=== PATIENT | male | born 1975 | race African-American/Black ===

== ENCOUNTER 2018-05-08 20:18 | Inpatient (IN) | payer MEDICAID ==
[2018-05-08] MEDS ORDERED: HYDROmorphone 1 MG/ML Syringe IVPUSH ONE ×2 (20:48→23:48)
[2018-05-08] MEDS ORDERED: Metoclopramide 10 MG/2 ML SDV IVPUSH ONE (20:48)
--- NOTE | 2018-05-08 20:53 | EDM.PDOC ---
ED HPI GENERAL MEDICAL PROBLEM - General Chief Complaint: Abdominal Pain Stated Complaint: ABDOMINAL PAIN Time Seen by Provider: 05/08/18 20:47 Source of Information: Reports: Patient History Limitations: Reports: No Limitations - History of Present Illness INITIAL COMMENTS - FREE TEXT/NARRATIVE: 43-year-old male attends the ED after being seen initially at [facility] walk-in. Patient presents there with diffuse lower abdominal pain since about 8: 30 last night. Pain came on abruptly after eating supper. He states the pain is about the same as it was last night. He can stand fully erect he's walking hunched over. He's developed a fever of 104.5. He's had the chills with rigors off-and-on today. does have lower abdominal pressure discomfort and a feeling of need to defecate but unable to do so. He feels nauseated has tried to try make himself vomit but has been unable to do so. He states he drinks or eats anything as it makes the pain much worse. He said no previous abdominal surgery. He is allergic to be constant walnuts. Takes no medications regularly Onset: Sudden Onset Date: 05/07/18 Onset Time: 20:30 Duration: Hour(s):, Constant, Getting Worse Location: Reports: Abdomen (Diffuse lower abdominal pain particularly suprapubic pubic Skip. He is not able to localize it to one quadrant versus the other.) Quality: Reports: Other Severity: Moderate (Constant deep aching pain. 8 out of 10) Improves with: Reports: Rest Worsens with: Reports: Other, Movement (In the position.) Context: Denies: Activity (Cannot stand fully erect is walking hunched over.), Exercise, Lifting, Sick Contact, Trauma, Other Associated Symptoms: Reports: Diaphoresis, Fever/Chills, Headaches, Loss of Appetite, Malaise (Mild headache), Nausea/Vomiting (Nausea without vomiting), Other (Ileum did need to defecate but unable to do so today). 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 [No Known Home Meds] 05/08/18 [History] Past Medical History Neurological History: Reports: Other (See Below) Other Neuro History: bells palsy Social & Family History - Tobacco Use Smoking Status *Q: Current Every Day Smoker Years of Tobacco use: 15 Packs/Tins Daily: 0.5 - Caffeine Use Caffeine Use: Reports: Coffee, Energy Drinks, Soda - Recreational Drug Use Recreational Drug Type: Reports: Marijuana/Hashish - Living Situation & Occupation Living situation: Reports: Single Occupation: Unemployed ED ROS GENERAL - Review of Systems Review Of Systems: See Below Constitutional: Reports: Fever, Chills, Malaise, Weakness, Fatigue, Decreased Appetite (Eating makes the pain much worse today even drinking water makes the pain worse) HEENT: Reports: Other Respiratory: Reports: Shortness of Breath (Dry lips and mouth. Deep breathing makes the abdominal pain worse) Cardiovascular: Reports: No Symptoms Endocrine: Reports: No Symptoms GI/Abdominal: Reports: Abdominal Pain (ee history of present illness diffuse severe lower abdominal pain with no radiation to the back.), Anorexia, Nausea ( Unable to eat today). Denies: Black Stool, Bloody Stool, Constipation, Diarrhea , Vomiting : Reports: No Symptoms Musculoskeletal: Reports: No Symptoms Skin: Reports: No Symptoms Neurological: Reports: No Symptoms Psychiatric: Reports: No Symptoms Hematologic/Lymphatic: Reports: No Symptoms Immunologic: Reports: No Symptoms ED EXAM, GI/ABD - Physical Exam Exam: See Below Exam Limited By: No Limitations General Appearance: Alert, WD/WN, Moderate Distress, Other (Patient has very warm to palpation nurses got temperature 104.5. He does indeed feel extremely warm to palpation.) Eyes: Bilateral: Normal Appearance (No jaundice.) Throat/Mouth: Other (It's a very dark dry and chapped. Tongue is dry and coated. ) Head: Atraumatic, Normocephalic Neck: Normal Inspection, Supple, Non-Tender, Full Range of Motion. No: Lymphadenopathy (L), Lymphadenopathy (R) Respiratory/Chest: Lungs Clear, Normal Breath Sounds (Mild tachypnea 20/m. Sats 97% on room air), No Accessory Muscle Use, Chest Non-Tender, Respiratory Distress Cardiovascular: Normal Peripheral Pulses, Regular Rate, Rhythm, No Edema, No Murmur, No Rub, Tachycardia (Resting tachycardia of 10 8/m.) GI/Abdominal Exam: Distended (Bowel sounds are quiet sent in all 4 quadrants. Likely distended and slightly tympanitic to percussion.), Guarding (Tender throughout the abdomen particularly both lower quadrants and suprapubically with guarding and rebound tenderness. Not able to localize to one quadrant versus the other. Seems to be most tender in the suprapubic area), Rebound, Tender, Abnormal Bowel Sounds, Other (No surgical scars). No: Hepatomegaly, Splenomegaly Back Exam: Normal Inspection, Full Range of Motion. No: CVA Tenderness (L), CVA Tenderness (R) Extremities: Normal Inspection, Normal Range of Motion, Non-Tender, No Pedal Edema Neurological: Alert, Oriented, CN II-XII Intact, Normal Cognition Psychiatric: Normal Affect, Normal Mood Skin Exam: Warm, Dry, Intact, Normal Color, No Rash EKG INTERPRETATION EKG Date: 05/08/18 Time: 21:05 Rhythm: Other Rate (Beats/Min): 105 [place]: Normal P-Wave: Present ST-T: Other (Diffuse early repolarization pattern) QT: Normal (likely due to rate.) EKG Interpretation Comments: Abnormal ECG only due to the tachycardia. Course - Vital Signs Last Recorded V/S: Last Vital Signs Temp 38.4 C H 05/08/18 23:50 Pulse 104 H 05/08/18 20:37 Resp 16 05/08/18 23:46 BP 143/92 H 05/08/18 20:37 Pulse Ox 100 05/08/18 23:46 - Orders/Labs/Meds Orders: Active Orders 24 hr Category Date Time Status EKG Documentation Completion [RC] STAT Care 05/08/18 20:50 Active Abdomen 1V Flat [CR] Stat Exams 05/08/18 20:59 Taken Abdomen Pelvis w Cont [CT] Stat Exams 05/08/18 21:49 Taken Chest 1V Frontal [CR] Stat Exams 05/08/18 20:49 Taken CULTURE BLOOD [BC] Stat Lab 05/08/18 21:05 Received CULTURE BLOOD [BC] Stat Lab 05/08/18 21:15 Received Dextrose 5%-0.9% NaCl [Dextrose 5%-Normal Saline] 1,000 Med 05/08/18 21:00 Active ml IV ASDIRECTED metroNIDAZOLE/Normal Saline [Flagyl 500 MG in NS 100 ML Med 05/08/18 23:18 Active ] 500 mg Premix Bag 1 bag IV ONETIME Blood Culture x2 Reflex Set [OM.PC] Stat Oth 05/08/18 20:50 Ordered Medication Orders Dextrose/Sodium Chloride (Dextrose 5%-Normal Saline) 1,000 mls @ 999 mls/hr IV ASDIRECTED MARLY Last Admin: 05/08/18 21:06 Dose: 999 mls/hr Metronidazole 500 mg/ Premix 100 mls @ 100 mls/hr IV ONETIME ONE Stop: 05/09/18 00:17 Last Admin: 05/08/18 23:47 Dose: 100 mls/hr Labs: Laboratory Tests 05/08/18 05/08/18 05/08/18 Range/Units 21:05 21:05 21:05 WBC 13.74 H (4.23-9.07) K/mm3 RBC 4.72 (4.63-6.08) M/mm3 Hgb 14.9 (13.7-17.5) gm/L Hct 43.7 (40.1-51.0) % MCV 92.6 H (79.0-92.2) fl MCH 31.6 (25.7-32.2) pg MCHC 34.1 (32.2-35.5) g/dl RDW Std Deviation 44.5 H (35.1-43.9) fL Plt Count 226 (163-337) K/mm3 MPV 9.1 L (9.4-12.3) fl Neutrophils % (Manual) 87 H (40-60) % Band Neutrophils % 0 (0-10) % Lymphocytes % (Manual) 9 L (20-40) % Atypical Lymphs % 0 % Monocytes % (Manual) 4 (2-10) % Eosinophils % (Manual) 0 L (0.8-7.0) % Basophils % (Manual) 0 L (0.2-1.2) Platelet Estimate Adequate RBC Morph Comment Normal ESR (0-15) mm/hr PT 11.8 (9.5-12.1) SECONDS INR 1.08 APTT 32 H (24-31) SECONDS Sodium 137 (136-145) mEq/L Potassium 3.7 (3.5-5.1) mEq/L Chloride 100 (98-107) mEq/L Carbon Dioxide 28 (21-32) mEq/L Anion Gap 12.7 (5-15) BUN 17 (7-18) mg/dL Creatinine 1.2 (0.7-1.3) mg/dL Est Cr Clr Drug Dosing 75.74 mL/min Estimated GFR (MDRD) > 60 (>60) mL/min BUN/Creatinine Ratio 14.2 (14-18) Glucose 106 (74-106) mg/dL Calcium 9.4 (8.5-10.1) mg/dL Total Bilirubin 0.5 (0.2-1.0) mg/dL AST 20 (15-37) U/L ALT 36 (16-63) U/L Alkaline Phosphatase 94 (46-116) U/L C-Reactive Protein 22.8 H* (<1.0) mg/dL Total Protein 9.0 H (6.4-8.2) g/dl Albumin 3.8 (3.4-5.0) g/dl Globulin 5.2 gm/dL Albumin/Globulin Ratio 0.7 L (1-2) Lipase 84 (73-393) U/L Urine Color (Yellow) Urine Appearance (Clear) Urine pH (5.0-8.0) Ur Specific [place] (1.005-1.030) Urine Protein (Negative) Urine Glucose (UA) (Negative) Urine Ketones (Negative) Urine Occult Blood (Negative) Urine Nitrite (Negative) Urine Bilirubin (Negative) Urine Urobilinogen (0.2-1.0) Ur Leukocyte Esterase (Negative) Urine RBC (0-5) /hpf Urine WBC (0-5) /hpf Ur Epithelial Cells (0-5) /hpf Urine Bacteria (FEW) /hpf Urine Mucus (FEW) /hpf 05/08/18 05/08/18 Range/Units 21:05 22:00 WBC (4.23-9.07) K/mm3 RBC (4.63-6.08) M/mm3 Hgb (13.7-17.5) gm/L Hct (40.1-51.0) % MCV (79.0-92.2) fl MCH (25.7-32.2) pg MCHC (32.2-35.5) g/dl RDW Std Deviation (35.1-43.9) fL Plt Count (163-337) K/mm3 MPV (9.4-12.3) fl Neutrophils % (Manual) (40-60) % Band Neutrophils % (0-10) % Lymphocytes % (Manual) (20-40) % Atypical Lymphs % % Monocytes % (Manual) (2-10) % Eosinophils % (Manual) (0.8-7.0) % Basophils % (Manual) (0.2-1.2) Platelet Estimate RBC Morph Comment ESR 57 H (0-15) mm/hr PT (9.5-12.1) SECONDS INR APTT (24-31) SECONDS Sodium (136-145) mEq/L Potassium (3.5-5.1) mEq/L Chloride (98-107) mEq/L Carbon Dioxide (21-32) mEq/L Anion Gap (5-15) BUN (7-18) mg/dL Creatinine (0.7-1.3) mg/dL Est Cr Clr Drug Dosing mL/min Estimated GFR (MDRD) (>60) mL/min BUN/Creatinine Ratio (14-18) Glucose (74-106) mg/dL Calcium (8.5-10.1) mg/dL Total Bilirubin (0.2-1.0) mg/dL AST (15-37) U/L ALT (16-63) U/L Alkaline Phosphatase (46-116) U/L C-Reactive Protein (<1.0) mg/dL Total Protein (6.4-8.2) g/dl Albumin (3.4-5.0) g/dl Globulin gm/dL Albumin/Globulin Ratio (1-2) Lipase (73-393) U/L Urine Color Yellow (Yellow) Urine Appearance Clear (Clear) Urine pH 6.5 (5.0-8.0) Ur Specific [place] 1.025 (1.005-1.030) Urine Protein 2+ H (Negative) Urine Glucose (UA) 2+ H (Negative) Urine Ketones 1+ H (Negative) Urine Occult Blood Negative (Negative) Urine Nitrite Negative (Negative) Urine Bilirubin Negative (Negative) Urine Urobilinogen 0.2 (0.2-1.0) Ur Leukocyte Esterase Negative (Negative) Urine RBC 0-5 (0-5) /hpf Urine WBC 0-5 (0-5) /hpf Ur Epithelial Cells 0-5 (0-5) /hpf Urine Bacteria Few (FEW) /hpf Urine Mucus Few (FEW) /hpf Meds: Medications Generic Name Dose Route Start Last Admin Trade Name Freq PRN Reason Stop Dose Admin Dextrose/Sodium Chloride 1,000 mls @ 999 mls/hr 05/08/18 21:00 05/08/18 21:06 Dextrose 5%-Normal Saline IV 999 mls/hr ASDIRECTED MARLY Administration Metronidazole 500 mg/ Premix 100 mls @ 100 mls/hr 05/08/18 23:18 05/08/18 23: 47 IV 05/09/18 00:17 100 mls/hr ONETIME ONE Administration Discontinued Medications Generic Name Dose Route Start Last Admin Trade Name Freq PRN Reason Stop Dose Admin Acetaminophen 975 mg 05/08/18 23:47 05/08/18 23:50 Tylenol PO 05/08/18 23:48 975 mg NOW ONE Administration Acetaminophen Confirm 05/08/18 23:49 05/08/18 23:54 Tylenol Administered 05/08/18 23:50 Not Given Dose 975 mg .ROUTE .STK-MED ONE Hydromorphone HCl 1 mg 05/08/18 20:48 05/08/18 21:05 Dilaudid IVPUSH 05/08/18 20:49 1 mg ONETIME ONE Administration Hydromorphone HCl 1 mg 05/08/18 23:48 05/08/18 23:54 Dilaudid IVPUSH 05/08/18 23:49 1 mg ONETIME ONE Administration Levofloxacin/Dextrose 750 mg/ 150 mls @ 100 mls/hr 05/08/18 21:52 05/08/18 22 :02 Premix IV 05/08/18 23:21 100 mls/hr ONETIME ONE Administration Iopamidol 100 ml 05/08/18 22:50 05/08/18 23:04 Isovue-300 (61%) IVPUSH 05/08/18 22:51 100 ml ONETIME ONE Administration Metoclopramide HCl 10 mg 05/08/18 20:48 05/08/18 21:05 Reglan IVPUSH 05/08/18 20:49 10 mg ONETIME ONE Administration - Radiology Interpretation Free Text/Narrative:: 43-year-old male of -[place] descent presents to the ED with acute onset of diffuse lower abdominal pain last night about 2030 hrs. States the pain relief hasn't changed it came on quickly and is severe. He can stand fully erect. Somewhere in the night she developed fever with chills off and on throughout the day. He tries to eat or drink and makes the pain much worse. He has a constant feeling of need to defecate but is been unable to do so. Usually his bowels work on a daily basis. He feels nauseated but has been unable to vomit. No previous abdominal surgery. Examination reveals peritonitis with tenderness to percussion across the lower abdomen particularly suprapubically. He has guarding and rebound tenderness in both lower quadrants and suprapubically. Not able to localize the pain to either lower quadrant. History of rectal pressure discomfort and feeling of need to void suggest acute diverticulitis involving the lower sigmoid colon. Plan IV D5 normal saline at open. Given Dilaudid 1 mg IV with Reglan 10 g IV for pain and nausea relief. Labs to be done including blood cultures 2. One view of the abdomen will be done with one view of the chest. Plan will be to proceed with CT of the abdomen with oral and IV contrast once he can keep it down. - Re-Assessments/Exams Free Text/Narrative Re-Assessment/Exam: 05/08/18 21:52 Labs are back showing an elevated white count at 13.74 with a left shift of 87% neutrophils and no bands. Hemoglobin is 14.9 with hematocrit of 43.7. MCV is slightly elevated at 92.6. White count is 226,000. PT is 11.8 with an INR of 1.08. PTT is 32. 37 with potassium of 3.7. Chloride 100 with a bicarbonate 28. And a gap is 12.7. BUN is 17 with a creatinine of 1.2. A cemented GFR is greater than 60. Glucose is 106 with calcium of 9.4. Liver function is normal. C-reactive protein is pending. Total protein is 9.0. Lipase is 84 05/08/18 22:36 C-reactive protein is markedly elevated at 22.8. Urinalysis shows 2+ proteinuria 2+ glucosuria and 1+ ketones. The micro-oh the urinalysis is pending 05/08/18 23:19 CT of the abdomen and pelvis was done with IV contrast only as the patient could not tolerate oral contrast. The visualized portions of the heart and lungs are clear. No free air is evident. Liver is homogeneous and appears normal. Gallbladder shows no calcified gallstones. Pancreas and spleen appear to be within normal limits. Both kidneys appeared to be normal without any stones or evidence of urinary tract obstruction. There are several dilated loops of small bowel compatible with an ileus. There is also an couple of air- fluid levels within the right hemicolon. The appendix is visualized and is felt to be within normal limits. There is extensive inflammation involving the lower sigmoid colon right behind the urinary bladder. Appears to be very mild diverticula in this area. There is one area that has a small air bubble outside of the bowel suggesting microperforation. We'll await the formal radiology report. Ordered Flagyl 500 mg IV. 05/08/18 23:35 v.rad radiologist called and agrees with my findings of suspect diverticulitis in the low sigmoid colon. There appears to be a localized microperforation with a solitary air bubble outside of the wall of the bowel. 05/08/18 23:[address] Buckner--chief environmental commitment officer surgeon, and he will admit the patient to the hospital . Orders recieved and I will write bridge orders. Departure - Departure Time of Disposition: 00:07 Disposition: Admitted As Inpatient 68 Condition: Serious Clinical Impression: Acute diverticulitis, High fever, Adynamic ileus - Discharge Information *PRESCRIPTION DRUG MONITORING PROGRAM REVIEWED*: Not Applicable *COPY OF PRESCRIPTION DRUG MONITORING REPORT IN PATIENT MARIANGEL: Not Applicable - My Orders Last 24 Hours: My Active Orders 05/08/18 20:49 Chest 1V Frontal [CR] Stat 05/08/18 20:50 EKG Documentation Completion [RC] STAT Blood Culture x2 Reflex Set [OM.PC] Stat 05/08/18 20:59 Abdomen 1V Flat [CR] Stat 05/08/18 21:00 Dextrose 5%-0.9% NaCl [Dextrose 5%-Normal Saline] 1,000 ml IV ASDIRECTED 05/08/18 21:05 CULTURE BLOOD [BC] Stat 05/08/18 21:15 CULTURE BLOOD [BC] Stat 05/08/18 21:49 Abdomen Pelvis w Cont [CT] Stat 05/08/18 23:18 metroNIDAZOLE/Normal Saline [Flagyl 500 MG in NS 100 ML] 500 mg Premix Bag 1 bag IV ONETIME - Assessment/Plan Last 24 Hours: My Active Orders 05/08/18 20:49 Chest 1V Frontal [CR] Stat 05/08/18 20:50 EKG Documentation Completion [RC] STAT Blood Culture x2 Reflex Set [OM.PC] Stat 05/08/18 20:59 Abdomen 1V Flat [CR] Stat 05/08/18 21:00 Dextrose 5%-0.9% NaCl [Dextrose 5%-Normal Saline] 1,000 ml IV ASDIRECTED 05/08/18 21:05 CULTURE BLOOD [BC] Stat 05/08/18 21:15 CULTURE BLOOD [BC] Stat 05/08/18 21:49 Abdomen Pelvis w Cont [CT] Stat 05/08/18 23:18 metroNIDAZOLE/Normal Saline [Flagyl 500 MG in NS 100 ML] 500 mg Premix Bag 1 bag IV ONETIME
[2018-05-08] MEDS ORDERED: Dextrose 5%-0.9% NaCl 1,000 ML IV SCH (21:00)
[2018-05-08] MEDS ORDERED: Levofloxacin/Dextrose 5%-Water 750 MG in Premix Bag 1 BAG IV ONE (21:52)
[2018-05-08] MEDS ORDERED: Iopamidol 612 MG/ML 100 ML Bottle IVPUSH ONE (22:50)
[2018-05-08] MEDS ORDERED: metroNIDAZOLE/Normal Saline 500 MG in Premix Bag 1 BAG IV ONE (23:18)
[2018-05-08] MEDS ORDERED: Acetaminophen 325 MG Tab PO ONE (23:47)
[2018-05-08] MEDS ORDERED: Acetaminophen 325 MG Tab ONE (23:49)
[2018-05-09] MEDS: Dextrose 5%-Lactated Ringers 1,000 ML IV SCH ×2 (01:26→23:49)
[2018-05-09] MEDS ORDERED: HYDROmorphone 1 MG/ML Syringe IVPUSH PRN ×2 (02:00→13:30)
--- NOTE | 2018-05-09 07:07 | CT ---
CT abdomen and pelvis Technique: Multiple axial sections were obtained from above the dome of the diaphragm inferiorly through the pubic symphysis. Intravenous contrast was utilized. Small amount of oral contrast is noted. Comparison: No prior CT exam, previous abdominal x-ray performed earlier on same day (9:32 PM). Findings: Small air bubble is noted outside the sigmoid colon within the left side of the pelvis. Mild surrounding inflammatory change is seen. Findings most likely represent small perforation from poorly seen diverticulitis. Fluid is seen within the colon and within distal small bowel loops. Visualized lung bases show nothing acute. Liver shows mild fatty infiltration but shows no focal abnormality. Small hiatal hernia is noted. Spleen appears normal. Adrenal glands show no nodule. Kidneys show symmetric contrast enhancement without hydronephrosis or mass. Gallbladder contains no calcified gallstones. Aorta shows no aneurysm. No retroperitoneal adenopathy or mesenteric abnormalities are noted. No pelvic mass or adenopathy is seen. No free fluid is identified. Appendix is seen and appears within normal limits. Delayed images show contrast within the distal ureters and within the bladder. Bone window settings were reviewed which show minimal degenerative change. Impression: 1. Findings as noted above suspicious for mild diverticulitis. 2. Fluid within the colon and within distal small bowel. 3. Other incidental findings as noted above. Diagnostic code #3 I agree with preliminary report from [facility], finalized on 05/09/18, 12:30 AM Central Time
--- NOTE | 2018-05-09 07:07 | CR ---
Chest: Frontal view of the chest was obtained. Comparison: No prior chest x-ray. Heart size and mediastinum are normal. Bilateral cervical ribs are noted. Lungs are clear with no acute parenchymal change. Impression: 1. Bilateral cervical ribs. 2. Nothing acute is seen. Diagnostic code #2
--- NOTE | 2018-05-09 07:07 | CR ---
Abdomen: Supine view of the abdomen was obtained. Comparison: No previous study. Bowel gas pattern is normal. No abnormal calcifications or soft tissue abnormality is seen. No bony abnormality is seen. Impression: 1. Unremarkable supine abdominal x-ray. Diagnostic code #1
[2018-05-09] MEDS: Acetaminophen 325 MG Tab PO PRN ×4 (08:02→23:23)
--- NOTE | 2018-05-09 08:57 | PCM.HP ---
H&P History of Present Illness - General Date of Service: 05/09/18 Admit Problem/Dx: Admission Diagnosis/Problem Admission Diagnosis/Problem Diverticulitis Source of Information: Patient History Limitations: Reports: No Limitations - History of Present Illness Initial Comments - Free Text/Narative: 43 yo male, developed abdominal pain located in the suprapubic region about two days ago. Pain was sudden in onset, occurring after eating some Majano's. Pain got progressively worse, to 10/10, sharp. Pain was associated with mild nausea, without emesis. The patient initially went to the urgent clinic at [place], and was then transferred to the ER here at [facility]. The patient was febrile to 104. He underwent work-up, which was notable for elevated WBC of 13k, and a CT scan, which showed sigmoid diverticulitis. The patient was given a dose of IV Flagyl and IV Levaquin, and was admitted through the ER early this morning. Since admission, the patient has decrease in his abdominal pain, which remains sharp and suprapubic. It has become more intermittent, related to movement. He has had two watery bowel movements. Passing flatus. Normal spontaneous voiding. Has been able to ambulate to and from the bathroom. Pain is exacerbated by drinking anything, so he was unable to tolerate oral contrast for the CT scan. Pain was also exacerbated when drinkng a sip of water with Tylenol this morning. Currently, pain is rated 2/10. Lower Abdomen Pain Score (Numeric/FACES): 5 - Related Data Allergies/Adverse Reactions: Allergies Allergy/AdvReac Type Severity Reaction Status Date / Time tree nut [Pecans] Allergy Other Verified 05/09/18 00:56 walnut Allergy Other Verified 05/09/18 00:56 Home Medications: Home Meds . [No Known Home Meds] 05/08/18 [History] Past Medical History Neurological History: Reports: Other (See Below) Other Neuro History: bells palsy Psychiatric History: Reports: None - Past Surgical History Dermatological Surgical History: Reports: Other (See Below) (finger surgery) Social & Family History - Family History Cardiac: Reports: ID Musculoskeletal: Reports: Other (See Below) Other Musculoskeletal Family History: deteriating bones - mother Endocrine/Metabolic: Reports: Other (See Below) Other Endocrine/Metabolic Family History: calcium deficiency 8 yrs ag. - Tobacco Use Smoking Status *Q: Current Every Day Smoker Years of Tobacco use: 10 Packs/Tins Daily: 0.5 Used Tobacco, but Quit: No Second Hand Smoke Exposure: Yes - Caffeine Use Caffeine Use: Reports: Coffee - Alcohol Use Alcohol Use History: Yes Total Drinks Per Week Comment: 3 drinks/week Date of Last Drink: 05/06/18 - Recreational Drug Use Recreational Drug Use: Yes Drug Use in Last 12 Months: Yes Recreational Drug Type: Reports: Marijuana/Hashish Recreational Drug Use Frequency: Daily - Living Situation & Occupation Living situation: Reports: with Significant Other (lives with his girlfriend and 13 month old infant.) 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 Exam - Exam Exam: See Below - Vital Signs Vital Signs: Last Vital Signs Temp 38.5 C H 05/09/18 08:32 Pulse 105 H 05/09/18 07:39 Resp 18 05/09/18 07:39 BP 135/86 05/09/18 07:39 Pulse Ox 98 05/09/18 07:39 Weight: 81.193 kg - Exam General: Alert, Oriented, Cooperative HEENT: Conjunctiva Clear Lungs: Clear to Auscultation, Normal Respiratory Effort Cardiovascular: Regular Rhythm, Tachycardia GI/Abdominal Exam: Soft, Tender (tender to the lower abdomen, especially suprapubic. Percussion tenderness present.) Back Exam: No: CVA Tenderness (L), CVA Tenderness (R) Extremities: Normal Inspection Skin: Warm, Dry, Intact Neuro Extensive - Mental Status: Alert, Normal Mood/Affect, Normal Cognition, Memory Intact - Patient Data Lab Results Last 24 hrs: Laboratory Results - last 24 hr 05/08/18 05/08/18 05/08/18 Range/Units 21:05 21:05 21:05 WBC 13.74 H (4.23-9.07) K/mm3 RBC 4.72 (4.63-6.08) M/mm3 Hgb 14.9 (13.7-17.5) gm/L Hct 43.7 (40.1-51.0) % MCV 92.6 H (79.0-92.2) fl MCH 31.6 (25.7-32.2) pg MCHC 34.1 (32.2-35.5) g/dl RDW Std Deviation 44.5 H (35.1-43.9) fL Plt Count 226 (163-337) K/mm3 MPV 9.1 L (9.4-12.3) fl Neutrophils % (Manual) 87 H (40-60) % Band Neutrophils % 0 (0-10) % Lymphocytes % (Manual) 9 L (20-40) % Atypical Lymphs % 0 % Monocytes % (Manual) 4 (2-10) % Eosinophils % (Manual) 0 L (0.8-7.0) % Basophils % (Manual) 0 L (0.2-1.2) Platelet Estimate Adequate RBC Morph Comment Normal ESR (0-15) mm/hr PT 11.8 (9.5-12.1) SECONDS INR 1.08 APTT 32 H (24-31) SECONDS Sodium 137 (136-145) mEq/L Potassium 3.7 (3.5-5.1) mEq/L Chloride 100 (98-107) mEq/L Carbon Dioxide 28 (21-32) mEq/L Anion Gap 12.7 (5-15) BUN 17 (7-18) mg/dL Creatinine 1.2 (0.7-1.3) mg/dL Est Cr Clr Drug Dosing 75.74 mL/min Estimated GFR (MDRD) > 60 (>60) mL/min BUN/Creatinine Ratio 14.2 (14-18) Glucose 106 (74-106) mg/dL Calcium 9.4 (8.5-10.1) mg/dL Total Bilirubin 0.5 (0.2-1.0) mg/dL AST 20 (15-37) U/L ALT 36 (16-63) U/L Alkaline Phosphatase 94 (46-116) U/L C-Reactive Protein 22.8 H* (<1.0) mg/dL Total Protein 9.0 H (6.4-8.2) g/dl Albumin 3.8 (3.4-5.0) g/dl Globulin 5.2 gm/dL Albumin/Globulin Ratio 0.7 L (1-2) Lipase 84 (73-393) U/L Urine Color (Yellow) Urine Appearance (Clear) Urine pH (5.0-8.0) Ur Specific [place] (1.005-1.030) Urine Protein (Negative) Urine Glucose (UA) (Negative) Urine Ketones (Negative) Urine Occult Blood (Negative) Urine Nitrite (Negative) Urine Bilirubin (Negative) Urine Urobilinogen (0.2-1.0) Ur Leukocyte Esterase (Negative) Urine RBC (0-5) /hpf Urine WBC (0-5) /hpf Ur Epithelial Cells (0-5) /hpf Urine Bacteria (FEW) /hpf Urine Mucus (FEW) /hpf 05/08/18 05/08/18 Range/Units 21:05 22:00 WBC (4.23-9.07) K/mm3 RBC (4.63-6.08) M/mm3 Hgb (13.7-17.5) gm/L Hct (40.1-51.0) % MCV (79.0-92.2) fl MCH (25.7-32.2) pg MCHC (32.2-35.5) g/dl RDW Std Deviation (35.1-43.9) fL Plt Count (163-337) K/mm3 MPV (9.4-12.3) fl Neutrophils % (Manual) (40-60) % Band Neutrophils % (0-10) % Lymphocytes % (Manual) (20-40) % Atypical Lymphs % % Monocytes % (Manual) (2-10) % Eosinophils % (Manual) (0.8-7.0) % Basophils % (Manual) (0.2-1.2) Platelet Estimate RBC Morph Comment ESR 57 H (0-15) mm/hr PT (9.5-12.1) SECONDS INR APTT (24-31) SECONDS Sodium (136-145) mEq/L Potassium (3.5-5.1) mEq/L Chloride (98-107) mEq/L Carbon Dioxide (21-32) mEq/L Anion Gap (5-15) BUN (7-18) mg/dL Creatinine (0.7-1.3) mg/dL Est Cr Clr Drug Dosing mL/min Estimated GFR (MDRD) (>60) mL/min BUN/Creatinine Ratio (14-18) Glucose (74-106) mg/dL Calcium (8.5-10.1) mg/dL Total Bilirubin (0.2-1.0) mg/dL AST (15-37) U/L ALT (16-63) U/L Alkaline Phosphatase (46-116) U/L C-Reactive Protein (<1.0) mg/dL Total Protein (6.4-8.2) g/dl Albumin (3.4-5.0) g/dl Globulin gm/dL Albumin/Globulin Ratio (1-2) Lipase (73-393) U/L Urine Color Yellow (Yellow) Urine Appearance Clear (Clear) Urine pH 6.5 (5.0-8.0) Ur Specific [place] 1.025 (1.005-1.030) Urine Protein 2+ H (Negative) Urine Glucose (UA) 2+ H (Negative) Urine Ketones 1+ H (Negative) Urine Occult Blood Negative (Negative) Urine Nitrite Negative (Negative) Urine Bilirubin Negative (Negative) Urine Urobilinogen 0.2 (0.2-1.0) Ur Leukocyte Esterase Negative (Negative) Urine RBC 0-5 (0-5) /hpf Urine WBC 0-5 (0-5) /hpf Ur Epithelial Cells 0-5 (0-5) /hpf Urine Bacteria Few (FEW) /hpf Urine Mucus Few (FEW) /hpf Result Diagrams: 05/08/18 21:05 05/08/18 21:05 Imaging Impressions Last 24 hrs: CT abdomen and pelvis Technique: Multiple axial sections were obtained from above the dome of the diaphragm inferiorly through the pubic symphysis. Intravenous contrast was utilized. Small amount of oral contrast is noted. Comparison: No prior CT exam, previous abdominal x-ray performed earlier on same day (9:32 PM). Findings: Small air bubble is noted outside the sigmoid colon within the left side of the pelvis. Mild surrounding inflammatory change is seen. Findings most likely represent small perforation from poorly seen diverticulitis. Fluid is seen within the colon and within distal small bowel loops. Visualized lung bases show nothing acute. Liver shows mild fatty infiltration but shows no focal abnormality. Small hiatal hernia is noted. Spleen appears normal. Adrenal glands show no nodule. Kidneys show symmetric contrast enhancement without hydronephrosis or mass. Gallbladder contains no calcified gallstones. Aorta shows no aneurysm. No retroperitoneal adenopathy or mesenteric abnormalities are noted. No pelvic mass or adenopathy is seen. No free fluid is identified. Appendix is seen and appears within normal limits. Delayed images show contrast within the distal ureters and within the bladder. Bone window settings were reviewed which show minimal degenerative change. Impression: 1. Findings as noted above suspicious for mild diverticulitis. 2. Fluid within the colon and within distal small bowel. 3. Other incidental findings as noted above. Diagnostic code #3 I agree with preliminary report from [facility], finalized on 05/09/18, 12:30 AM Central Time Dictated by: Samir Garcia MD 05/09/18 at 0705 - Problem List (1) Sigmoid diverticulitis SNOMED Code(s): 871075568 ICD Code: K57.32 - DVTRCLI OF LG INT W/O PERFORATION OR ABSCESS W/O BLEEDING Status: Acute Current Visit: Yes Problem List Initiated/Reviewed/Updated: Yes Orders Last 24hrs: Active Orders 24 hr Category Date Time Status Admission Status [Patient Status] [ADT] Routine ADT 05/09/18 00:08 Active Patient Status [ADT] Routine ADT 05/08/18 23:45 Active Up With Assistance [RC] ASDIRECTED Care 05/09/18 00:40 Active NPO [Nothing Per Oral Diet] [DIET] Diet 05/09/18 Breakfast Active BASIC METABOLIC PANEL,BMP [CHEM] AM Lab 05/10/18 05:11 Ordered BASIC METABOLIC PANEL,BMP [CHEM] AM Lab 05/11/18 05:11 Ordered BASIC METABOLIC PANEL,BMP [CHEM] AM Lab 05/12/18 05:11 Ordered CBC WITH AUTO DIFF [HEME] AM Lab 05/10/18 05:11 Ordered CBC WITH AUTO DIFF [HEME] AM Lab 05/11/18 05:11 Ordered CBC WITH AUTO DIFF [HEME] AM Lab 05/12/18 05:11 Ordered CULTURE BLOOD [BC] Stat Lab 05/08/18 21:05 Received CULTURE BLOOD [BC] Stat Lab 05/08/18 21:15 Received MAGNESIUM [CHEM] AM Lab 05/10/18 05:11 Ordered MAGNESIUM [CHEM] AM Lab 05/11/18 05:11 Ordered MAGNESIUM [CHEM] AM Lab 05/12/18 05:11 Ordered PHOSPHORUS [CHEM] AM Lab 05/10/18 05:11 Ordered PHOSPHORUS [CHEM] AM Lab 05/11/18 05:11 Ordered PHOSPHORUS [CHEM] AM Lab 05/12/18 05:11 Ordered Acetaminophen [Tylenol] Med 05/09/18 06:00 Active 975 mg PO Q6H PRN D5 1/2 NS w/ 20 mEq/L KCl 1,000 ml Med 05/09/18 09:00 Active IV Q16H Dextrose 5%-Lactated Ringers 1,000 ml Med 05/09/18 01:00 Active IV Q16H HYDROmorphone [Dilaudid] Med 05/09/18 02:00 Active 1 mg IVPUSH Q2H PRN Levofloxacin/Dextrose 5%-Water [Levaquin in D5W 750 MG/ Med 05/09/18 22:00 Active 150 ML] 750 mg Premix Bag 1 bag IV Q24H Metoclopramide [Reglan] Med 05/09/18 02:00 Active 10 mg IVPUSH Q6H PRN metroNIDAZOLE/Normal Saline [Flagyl 500 MG in NS 100 ML Med 05/09/18 08:00 Active ] 500 mg Premix Bag 1 bag IV Q8H Blood Culture x2 Reflex Set [OM.PC] Stat Oth 05/08/18 20:50 Ordered Resuscitation Status Routine Resus Stat 05/09/18 00:39 Ordered Medication Orders Acetaminophen (Tylenol) 975 mg PO Q6H PRN PRN Reason: Fever Last Admin: 05/09/18 08:32 Dose: 325 mg Admin: 05/09/18 08:02 Dose: 650 mg Hydromorphone HCl (Dilaudid) 1 mg IVPUSH Q2H PRN PRN Reason: Pain Dextrose/Lactated Ringer's (Dextrose 5%-Lactated Ringers) 1,000 mls @ 125 mls/ hr IV Q16H [facility] Last Admin: 05/09/18 01:26 Dose: 125 mls/hr Potassium Chloride/Dextrose/Sod Cl (D5 1/2 Ns W/ 20 Meq/L Kcl) 1,000 mls @ 125 mls/hr IV Q16H [facility] Metronidazole 500 mg/ Premix 100 mls @ 100 mls/hr IV Q8H [facility] Levofloxacin/Dextrose 750 mg/ (Premix) 150 mls @ 100 mls/hr IV Q24H [facility] Metoclopramide HCl (Reglan) 10 mg IVPUSH Q6H PRN PRN Reason: Nausea Assessment/Plan Comment:: 43 yo male, -Turkish, active smoker, with first episode of acute sigmoid diverticulitis, H[place] I. CT scan report and images were reviewed. Small pocket of extra-luminal air in the area of inflammatory changes of the sigmoid colon. Sigmoid diverticulosis present. Plan for nonoperative management at this time, with bowel rest and IV antibiotics. - NPO, IV fluids. - Pain control with IV narcotics. - Tylenol PRN for fever. - Tachycardia - will give bolus of fluids. - Instructed patient to save all UOP for accurate I/O's. - Antibiotics: IV Levaquin, IV Flagyl. - DVT prophylaxis: heparin 5000 units SQ q8h, SCD's. Extensive discussion with patient regarding the diagnosis and management plan. Discussed the possible need for urgent surgical intervention if symptoms persist /worsen, and also potential need for elective surgery in the future. Patient will need colonoscopy once this episode of acute sigmoid diverticulitis is resolved (in 2-3 months). Patient was counseled on smoking cessation. Camilo Carranza M.D ([facility])., F.A.C.S. General Surgery Pager: [phone]
[2018-05-09] MEDS ORDERED: D5 1/2 NS w/ 20 mEq/L KCl 1,000 ML IV SCH (09:00)
[2018-05-09] MEDS: metroNIDAZOLE/Normal Saline 500 MG in Premix Bag 1 BAG IV SCH ×3 (09:12→23:23)
[2018-05-09] MEDS ORDERED: Sodium Chloride 0.9% 1,000 ML IV ONE (13:16)
[2018-05-09] MEDS: Heparin Sodium 5,000 Units/ML Vial SUBCUT SCH ×2 (13:54→21:46)
[2018-05-09] MEDS: Levofloxacin/Dextrose 5%-Water 750 MG in Premix Bag 1 BAG IV SCH (21:46)
[2018-05-09] MEDS: Metoclopramide 10 MG/2 ML SDV IVPUSH PRN (23:23)
[2018-05-10] MEDS: D5 1/2 NS w/ 20 mEq/L KCl 1,000 ML IV SCH ×3 (02:15→23:35)
[2018-05-10] MEDS: Heparin Sodium 5,000 Units/ML Vial SUBCUT SCH ×3 (05:42→20:33)
[2018-05-10] MEDS: Acetaminophen 325 MG Tab PO PRN ×3 (05:43→18:33)
[2018-05-10] MEDS: metroNIDAZOLE/Normal Saline 500 MG in Premix Bag 1 BAG IV SCH ×3 (09:16→23:31)
--- NOTE | 2018-05-10 11:41 | PCM.PN ---
- General Info Date of Service: 05/10/18 Admission Dx/Problem (Free Text): Admission Diagnosis/Problem Admission Diagnosis/Problem Diverticulitis Subjective Update: No acute events overnight. Pain controlled with morphine PRN. Overall, pain has decreased since yesterday. Currently pain is 0/10. He did receive some morphine last night. He also had a low grade fever this morning and received Tylenol. No n/v. Does feel a little hungry. Continues to have watery bowel movements. He would urinate with each bowel movement, so difficult to determine exact urine output. - Patient Data Vitals - Most Recent: Last Vital Signs Temp 36.9 C 05/10/18 08:35 Pulse 83 05/10/18 08:35 Resp 16 05/10/18 08:35 BP 112/80 05/10/18 08:35 Pulse Ox 98 05/10/18 08:35 Weight - Most Recent: 81.335 kg I&O - Last 24 Hours: Intake & Output 05/09/18 05/10/18 05/10/18 22:59 06:59 14:59 Intake Total 2050 1450 Output Total 150 Balance 1900 1450 Lab Results Last 24 Hours: Laboratory Results - last 24 hr 05/10/18 05/10/18 Range/Units 05:48 05:48 WBC 14.37 H (4.23-9.07) K/mm3 RBC 4.36 L (4.63-6.08) M/mm3 Hgb 13.9 (13.7-17.5) gm/L Hct 41.1 (40.1-51.0) % MCV 94.3 H (79.0-92.2) fl MCH 31.9 (25.7-32.2) pg MCHC 33.8 (32.2-35.5) g/dl RDW Std Deviation 44.3 H (35.1-43.9) fL Plt Count 174 (163-337) K/mm3 MPV 9.6 (9.4-12.3) fl Neut % (Auto) 86.9 H (34.0-67.9) % Lymph % (Auto) 5.8 L (21.8-53.1) % [place] % (Auto) 7.0 (5.3-12.2) % Eos % (Auto) 0.1 L (0.8-7.0) Baso % (Auto) 0.1 (0.1-1.2) % Neut # (Auto) 12.48 H (1.78-5.38) K/mm3 Lymph # (Auto) 0.84 L (1.32-3.57) K/mm3 [place] # (Auto) 1.01 H (0.30-0.82) K/mm3 Eos # (Auto) 0.01 L (0.04-0.54) K/mm3 Baso # (Auto) 0.01 (0.01-0.08) K/mm3 Manual Slide Review Abnormal smear Sodium 137 (136-145) mEq/L Potassium 3.9 (3.5-5.1) mEq/L Chloride 105 (98-107) mEq/L Carbon Dioxide 23 (21-32) mEq/L Anion Gap 12.9 (5-15) BUN 9 (7-18) mg/dL Creatinine 1.1 (0.7-1.3) mg/dL Est Cr Clr Drug Dosing 82.63 mL/min Estimated GFR (MDRD) > 60 (>60) mL/min BUN/Creatinine Ratio 8.2 L (14-18) Glucose 108 H (74-106) mg/dL Calcium 8.9 (8.5-10.1) mg/dL Phosphorus 2.1 L (2.6-4.7) mg/dL Magnesium 1.9 (1.8-2.4) mg/dl Shay Results Last 24 Hours: Microbiology 05/08/18 21:15 Aerobic Blood Culture - Preliminary Blood - Venous - Lab Draw NO GROWTH AFTER 1 DAY Anaerobic Blood Culture - Preliminary NO GROWTH AFTER 1 DAY 05/08/18 21:05 Aerobic Blood Culture - Preliminary Blood - Venous NO GROWTH AFTER 1 DAY Anaerobic Blood Culture - Preliminary NO GROWTH AFTER 1 DAY Med Orders - Current: Current Medications Acetaminophen (Tylenol) 975 mg PO Q6H PRN PRN Reason: Fever Last Admin: 05/10/18 05:43 Dose: 975 mg Heparin Sodium (Porcine) (Heparin Sodium) 5,000 units SUBCUT Q8H [facility] Last Admin: 05/10/18 05:42 Dose: 5,000 units Hydromorphone HCl (Dilaudid) 0.2 - 0.6 mg IVPUSH Q2H PRN PRN Reason: Pain Last Admin: 05/10/18 05:43 Dose: 0.6 mg Metronidazole 500 mg/ Premix 100 mls @ 100 mls/hr IV Q8H [facility] Last Admin: 05/10/18 09:16 Dose: 100 mls/hr Levofloxacin/Dextrose 750 mg/ (Premix) 150 mls @ 100 mls/hr IV Q24H [facility] Last Admin: 05/09/18 21:46 Dose: 100 mls/hr Potassium Chloride/Dextrose/Sod Cl (D5 1/2 Ns W/ 20 Meq/L Kcl) 1,000 mls @ 125 mls/hr IV ASDIRECTED [facility] Last Admin: 05/10/18 02:15 Dose: 125 mls/hr Metoclopramide HCl (Reglan) 10 mg IVPUSH Q6H PRN PRN Reason: Nausea Last Admin: 05/09/18 23:23 Dose: 10 mg Discontinued Medications Acetaminophen (Tylenol) 975 mg PO NOW ONE Stop: 05/08/18 23:48 Last Admin: 05/08/18 23:50 Dose: 975 mg Acetaminophen (Tylenol) Confirm Administered Dose 975 mg .ROUTE .STK-MED ONE Stop: 05/08/18 23:50 Last Admin: 05/08/18 23:54 Dose: Not Given Hydromorphone HCl (Dilaudid) 1 mg IVPUSH ONETIME ONE Stop: 05/08/18 20:49 Last Admin: 05/08/18 21:05 Dose: 1 mg Hydromorphone HCl (Dilaudid) 1 mg IVPUSH ONETIME ONE Stop: 05/08/18 23:49 Last Admin: 05/08/18 23:54 Dose: 1 mg Hydromorphone HCl (Dilaudid) 1 mg IVPUSH Q2H PRN PRN Reason: Pain Last Admin: 05/09/18 13:12 Dose: 1 mg Dextrose/Sodium Chloride (Dextrose 5%-Normal Saline) 1,000 mls @ 999 mls/hr IV ASDIRECTED [facility] Last Admin: 05/08/18 21:06 Dose: 999 mls/hr Levofloxacin/Dextrose 750 mg/ (Premix) 150 mls @ 100 mls/hr IV ONETIME ONE Stop: 05/08/18 23:21 Last Admin: 05/08/18 22:02 Dose: 100 mls/hr Metronidazole 500 mg/ Premix 100 mls @ 100 mls/hr IV ONETIME ONE Stop: 05/09/18 00:17 Last Admin: 05/08/18 23:47 Dose: 100 mls/hr Dextrose/Lactated Ringer's (Dextrose 5%-Lactated Ringers) 1,000 mls @ 125 mls/ hr IV Q16H [facility] Last Admin: 05/09/18 23:49 Dose: Not Given Potassium Chloride/Dextrose/Sod Cl (D5 1/2 Ns W/ 20 Meq/L Kcl) 1,000 mls @ 125 mls/hr IV Q16H [facility] Last Admin: 05/09/18 11:39 Dose: 125 mls/hr Sodium Chloride (Normal Saline) 1,000 mls @ 500 mls/hr IV ONETIME ONE Stop: 05/09/18 15:15 Last Admin: 05/09/18 13:54 Dose: 500 mls/hr Iopamidol (Isovue-300 (61%)) 100 ml IVPUSH ONETIME ONE Stop: 05/08/18 22:51 Last Admin: 05/08/18 23:04 Dose: 100 ml Metoclopramide HCl (Reglan) 10 mg IVPUSH ONETIME ONE Stop: 05/08/18 20:49 Last Admin: 05/08/18 21:05 Dose: 10 mg - Exam General: Alert, Oriented, Severe Distress GI/Abdominal Exam: Other (mild tenderness to the LLQ. Nondistended.) - Problem List & Annotations (1) Sigmoid diverticulitis SNOMED Code(s): 631418414 Code(s): K57.32 - DVTRCLI OF LG INT W/O PERFORATION OR ABSCESS W/O BLEEDING Status: Acute Current Visit: Yes - Problem List Review Problem List Initiated/Reviewed/Updated: Yes - My Orders Last 24 Hours: My Active Orders 05/09/18 13:17 Incentive Breathing [RT Incentive Spirometry] [RC] ASDIRECTED Intake and Output Strict [RC] ,16 SCD [Sequential Compression Device] [OM.PC] Routine 05/09/18 13:30 HYDROmorphone [Dilaudid] 0.2 - 0.6 mg IVPUSH Q2H PRN Heparin Sodium 5,000 units SUBCUT Q8H 05/09/18 22:00 Levofloxacin/Dextrose 5%-Water [Levaquin in D5W 750 MG/150 ML] 750 mg Premix Bag 1 bag IV Q24H 05/09/18 23:45 D5 1/2 NS w/ 20 mEq/L KCl 1,000 ml IV ASDIRECTED 05/11/18 05:11 BASIC METABOLIC PANEL,BMP [CHEM] AM CBC WITH AUTO DIFF [HEME] AM MAGNESIUM [CHEM] AM PHOSPHORUS [CHEM] AM 05/12/18 05:11 BASIC METABOLIC PANEL,BMP [CHEM] AM CBC WITH AUTO DIFF [HEME] AM MAGNESIUM [CHEM] AM PHOSPHORUS [CHEM] AM 05/14/18 07:00 CBC W/O DIFF,HEMOGRAM [HEME] MOTH@0700 05/17/18 07:00 CBC W/O DIFF,HEMOGRAM [HEME] MOTH@0700 05/21/18 07:00 CBC W/O DIFF,HEMOGRAM [HEME] MOTH@0700 05/24/18 07:00 CBC W/O DIFF,HEMOGRAM [HEME] MOTH@0700 05/28/18 07:00 CBC W/O DIFF,HEMOGRAM [HEME] MOTH@0700 - Plan Plan:: 43 yo male, -[place]ian, active smoker, with first episode of acute sigmoid diverticulitis, [place] I, admitted for bowel rest and IV antibiotics, HD#2. Clinically improving with decreasing pain. WBC remains elevated at 14k. - Continue NPO, IV fluids. - Pain control with IV narcotics. - Antibiotics: IV Levaquin, IV Flagyl (day #2) - DVT prophylaxis: heparin 5000 units SQ q8h, SCD's. Patient will need colonoscopy once this episode of acute sigmoid diverticulitis is resolved (in 2-3 months). Camilo Carranza M.D ([facility])., F.A.C.S. General Surgery Pager: [phone]
[2018-05-10] MEDS: Metoclopramide 10 MG/2 ML SDV IVPUSH PRN (20:21)
[2018-05-10] MEDS: Levofloxacin/Dextrose 5%-Water 750 MG in Premix Bag 1 BAG IV SCH (21:28)
[2018-05-11] MEDS: Acetaminophen 325 MG Tab PO PRN ×3 (00:22→16:15)
[2018-05-11] MEDS: Metoclopramide 10 MG/2 ML SDV IVPUSH PRN ×2 (06:10→23:58)
[2018-05-11] MEDS: Heparin Sodium 5,000 Units/ML Vial SUBCUT SCH ×3 (06:13→22:02)
[2018-05-11] MEDS: D5 1/2 NS w/ 20 mEq/L KCl 1,000 ML IV SCH ×2 (08:35→16:15)
[2018-05-11] MEDS: metroNIDAZOLE/Normal Saline 500 MG in Premix Bag 1 BAG IV SCH ×3 (08:37→23:58)
--- NOTE | 2018-05-11 10:42 | PCM.PN ---
- General Info Date of Service: 05/11/18 Admission Dx/Problem (Free Text): Admission Diagnosis/Problem Admission Diagnosis/Problem Diverticulitis Subjective Update: No acute events overnight. Had some mild nausea this morning, given Reglan. Pain is much improved, rated less than 1 out of 10. Pain tends to be exacerbated by bowel movements and end of urination. He notes continued watery bowel movements, but decreased in frequency. - Patient Data Vitals - Most Recent: Last Vital Signs Temp 36.8 C 05/11/18 07:24 Pulse 79 05/11/18 07:24 Resp 16 05/11/18 07:24 BP 115/85 05/11/18 08:30 Pulse Ox 98 05/11/18 07:24 Weight - Most Recent: 80.768 kg I&O - Last 24 Hours: Intake & Output 05/10/18 05/11/18 05/11/18 22:59 06:59 14:59 Intake Total 1407 1299 Output Total 50 Balance 1357 1299 Lab Results Last 24 Hours: Laboratory Results - last 24 hr 05/11/18 05/11/18 Range/Units 06:15 06:15 WBC 7.35 (4.23-9.07) K/mm3 RBC 4.01 L (4.63-6.08) M/mm3 Hgb 12.6 L (13.7-17.5) gm/L Hct 37.5 L (40.1-51.0) % MCV 93.5 H (79.0-92.2) fl MCH 31.4 (25.7-32.2) pg MCHC 33.6 (32.2-35.5) g/dl RDW Std Deviation 42.9 (35.1-43.9) fL Plt Count 194 (163-337) K/mm3 MPV 9.7 (9.4-12.3) fl Neut % (Auto) 79.0 H (34.0-67.9) % Lymph % (Auto) 9.1 L (21.8-53.1) % [place] % (Auto) 11.2 (5.3-12.2) % Eos % (Auto) 0.5 L (0.8-7.0) Baso % (Auto) 0.1 (0.1-1.2) % Neut # (Auto) 5.80 H (1.78-5.38) K/mm3 Lymph # (Auto) 0.67 L (1.32-3.57) K/mm3 [place] # (Auto) 0.82 (0.30-0.82) K/mm3 Eos # (Auto) 0.04 (0.04-0.54) K/mm3 Baso # (Auto) 0.01 (0.01-0.08) K/mm3 Manual Slide Review Abnormal smear Sodium 138 (136-145) mEq/L Potassium 3.7 (3.5-5.1) mEq/L Chloride 104 (98-107) mEq/L Carbon Dioxide 24 (21-32) mEq/L Anion Gap 13.7 (5-15) BUN 8 (7-18) mg/dL Creatinine 1.0 (0.7-1.3) mg/dL Est Cr Clr Drug Dosing 90.89 mL/min Estimated GFR (MDRD) > 60 (>60) mL/min BUN/Creatinine Ratio 8.0 L (14-18) Glucose 104 (74-106) mg/dL Calcium 8.6 (8.5-10.1) mg/dL Phosphorus 2.0 L (2.6-4.7) mg/dL Magnesium 1.7 L (1.8-2.4) mg/dl Shay Results Last 24 Hours: Microbiology 05/08/18 21:15 Aerobic Blood Culture - Preliminary Blood - Venous - Lab Draw NO GROWTH AFTER 2 DAYS Anaerobic Blood Culture - Preliminary NO GROWTH AFTER 2 DAYS 05/08/18 21:05 Aerobic Blood Culture - Preliminary Blood - Venous NO GROWTH AFTER 2 DAYS Anaerobic Blood Culture - Preliminary NO GROWTH AFTER 2 DAYS Med Orders - Current: Current Medications Acetaminophen (Tylenol) 975 mg PO Q6H PRN PRN Reason: Fever Last Admin: 05/11/18 06:14 Dose: 975 mg Heparin Sodium (Porcine) (Heparin Sodium) 5,000 units SUBCUT Q8H [facility] Last Admin: 05/11/18 06:13 Dose: 5,000 units Hydromorphone HCl (Dilaudid) 0.2 - 0.6 mg IVPUSH Q2H PRN PRN Reason: Pain Last Admin: 05/10/18 05:43 Dose: 0.6 mg Metronidazole 500 mg/ Premix 100 mls @ 100 mls/hr IV Q8H [facility] Last Admin: 05/11/18 08:37 Dose: 100 mls/hr Levofloxacin/Dextrose 750 mg/ (Premix) 150 mls @ 100 mls/hr IV Q24H [facility] Last Admin: 05/10/18 21:28 Dose: 100 mls/hr Potassium Chloride/Dextrose/Sod Cl (D5 1/2 Ns W/ 20 Meq/L Kcl) 1,000 mls [facility] Last Admin: 05/11/18 08:35 Dose: 125 mls/hr Metoclopramide HCl (Reglan) 10 mg IVPUSH Q6H PRN PRN Reason: Nausea Last Admin: 05/11/18 06:10 Dose: 10 mg Discontinued Medications Acetaminophen (Tylenol) 975 mg PO NOW ONE Stop: 05/08/18 23:48 Last Admin: 05/08/18 23:50 Dose: 975 mg Acetaminophen (Tylenol) Confirm Administered Dose 975 mg .ROUTE .STK-MED ONE Stop: 05/08/18 23:50 Last Admin: 05/08/18 23:54 Dose: Not Given Hydromorphone HCl (Dilaudid) 1 mg IVPUSH ONETIME ONE Stop: 05/08/18 20:49 Last Admin: 05/08/18 21:05 Dose: 1 mg Hydromorphone HCl (Dilaudid) 1 mg IVPUSH ONETIME ONE Stop: 05/08/18 23:49 Last Admin: 05/08/18 23:54 Dose: 1 mg Hydromorphone HCl (Dilaudid) 1 mg IVPUSH Q2H PRN PRN Reason: Pain Last Admin: 05/09/18 13:12 Dose: 1 mg Dextrose/Sodium Chloride (Dextrose 5%-Normal Saline) 1,000 mls @ 999 [facility] Last Admin: 05/08/18 21:06 Dose: 999 mls/hr Levofloxacin/Dextrose 750 mg/ (Premix) 150 mls @ 100 mls/hr IV ONETIME ONE Stop: 05/08/18 23:21 Last Admin: 05/08/18 22:02 Dose: 100 mls/hr Metronidazole 500 mg/ Premix 100 mls @ 100 mls/hr IV ONETIME ONE Stop: 05/09/18 00:17 Last Admin: 05/08/18 23:47 Dose: 100 mls/hr Dextrose/Lactated Ringer's (Dextrose 5%-Lactated Ringers) 1,000 mls @ 125 mls/ hr IV Q16H [facility] Last Admin: 05/09/18 23:49 Dose: Not Given Potassium Chloride/Dextrose/Sod Cl (D5 1/2 Ns W/ 20 Meq/L Kcl) 1,000 mls @ 125 mls/hr IV Q16H [facility] Last Admin: 05/09/18 11:39 Dose: 125 mls/hr Sodium Chloride (Normal Saline) 1,000 mls @ 500 mls/hr IV ONETIME ONE Stop: 05/09/18 15:15 Last Admin: 05/09/18 13:54 Dose: 500 mls/hr Iopamidol (Isovue-300 (61%)) 100 ml IVPUSH ONETIME ONE Stop: 05/08/18 22:51 Last Admin: 05/08/18 23:04 Dose: 100 ml Metoclopramide HCl (Reglan) 10 mg IVPUSH ONETIME ONE Stop: 05/08/18 20:49 Last Admin: 05/08/18 21:05 Dose: 10 mg - Exam General: Alert, Oriented, Cooperative GI/Abdominal Exam: Tender (Mildly tender to the LLQ and suprapubic region. Nondistended.) - Problem List & Annotations (1) Sigmoid diverticulitis SNOMED Code(s): 521006806 Code(s): K57.32 - DVTRCLI OF LG INT W/O PERFORATION OR ABSCESS W/O BLEEDING Status: Acute Current Visit: Yes - Problem List Review Problem List Initiated/Reviewed/Updated: Yes - My Orders Last 24 Hours: My Active Orders 05/12/18 05:11 BASIC METABOLIC PANEL,BMP [CHEM] AM CBC WITH AUTO DIFF [HEME] AM MAGNESIUM [CHEM] AM PHOSPHORUS [CHEM] AM 05/14/18 07:00 CBC W/O DIFF,HEMOGRAM [HEME] MOTH@00 05/17/18 07:00 CBC W/O DIFF,HEMOGRAM [HEME] MOTH@0700 05/21/18 07:00 CBC W/O DIFF,HEMOGRAM [HEME] MOTH@0700 05/24/18 07:00 CBC W/O DIFF,HEMOGRAM [HEME] MOTH@0700 05/28/18 07:00 CBC W/O DIFF,HEMOGRAM [HEME] MOTH@0700 - Plan Plan:: 43 yo male, -[place]istani, active smoker, with first episode of acute sigmoid diverticulitis, [place] I, admitted for bowel rest and IV antibiotics, HD#3. Clinically improving with decreasing pain. WBC has decreased from 14k to 7k. - Start clear liquid diet. - Continue IV antibiotics: Levaquin, Flagyl (day #3) - DVT prophylaxis: heparin 5000 units SQ q8h, SCD's. Patient will need colonoscopy once this episode of acute sigmoid diverticulitis is resolved (in 2-3 months). Camilo "Sita" Shy Carranza., F.A.C.S. General Surgery Pager: [phone]
[2018-05-11] MEDS: Clotrimazole 1% Crm 30 GM Tube TOP SCH ×2 (14:27→22:02)
[2018-05-11] MEDS ORDERED: diphenhydrAMINE 25 MG Cap PO PRN (21:00)
[2018-05-11] MEDS: Levofloxacin/Dextrose 5%-Water 750 MG in Premix Bag 1 BAG IV SCH (22:03)
[2018-05-12] MEDS: D5 1/2 NS w/ 20 mEq/L KCl 1,000 ML IV SCH ×2 (01:15→10:04)
[2018-05-12] MEDS: Heparin Sodium 5,000 Units/ML Vial SUBCUT SCH ×2 (05:14→16:37)
[2018-05-12] MEDS: Clotrimazole 1% Crm 30 GM Tube TOP SCH (08:41)
[2018-05-12] MEDS: metroNIDAZOLE/Normal Saline 500 MG in Premix Bag 1 BAG IV SCH (08:41)
--- NOTE | 2018-05-12 10:19 | PCM.PN ---
- General Info Date of Service: 05/12/18 Admission Dx/Problem (Free Text): Admission Diagnosis/Problem Admission Diagnosis/Problem Diverticulitis Subjective Update: No acute events overnight. Had minimal abdominal cramping this morning, resolved. No need for pain medication. Tolerated full liquid diet for breakfast. No more watery bowel movements. - Patient Data Vitals - Most Recent: Last Vital Signs Temp 36.7 C 05/12/18 08:37 Pulse 69 05/12/18 08:37 Resp 18 05/12/18 08:37 BP 136/93 H 05/12/18 08:37 Pulse Ox 99 05/12/18 08:37 Weight - Most Recent: 81.647 kg I&O - Last 24 Hours: Intake & Output 05/11/18 05/12/18 05/12/18 22:59 06:59 14:59 Intake Total 2294 2100 Balance 2294 2100 Lab Results Last 24 Hours: Laboratory Results - last 24 hr 05/12/18 05/12/18 Range/Units 05:45 05:45 WBC 4.86 (4.23-9.07) K/mm3 RBC 4.14 L (4.63-6.08) M/mm3 Hgb 13.1 L (13.7-17.5) gm/L Hct 38.1 L (40.1-51.0) % MCV 92.0 (79.0-92.2) fl MCH 31.6 (25.7-32.2) pg MCHC 34.4 (32.2-35.5) g/dl RDW Std Deviation 41.3 (35.1-43.9) fL Plt Count 229 (163-337) K/mm3 MPV 9.6 (9.4-12.3) fl Neut % (Auto) 65.1 (34.0-67.9) % Lymph % (Auto) 18.3 L (21.8-53.1) % [place] % (Auto) 15.4 H (5.3-12.2) % Eos % (Auto) 0.8 (0.8-7.0) Baso % (Auto) 0.2 (0.1-1.2) % Neut # (Auto) 3.16 (1.78-5.38) K/mm3 Lymph # (Auto) 0.89 L (1.32-3.57) K/mm3 [place] # (Auto) 0.75 (0.30-0.82) K/mm3 Eos # (Auto) 0.04 (0.04-0.54) K/mm3 Baso # (Auto) 0.01 (0.01-0.08) K/mm3 Manual Slide Review Abnormal smear Sodium 136 (136-145) mEq/L Potassium 3.8 (3.5-5.1) mEq/L Chloride 102 (98-107) mEq/L Carbon Dioxide 24 (21-32) mEq/L Anion Gap 13.8 (5-15) BUN 5 L (7-18) mg/dL Creatinine 0.9 (0.7-1.3) mg/dL Est Cr Clr Drug Dosing 100.99 mL/min Estimated GFR (MDRD) > 60 (>60) mL/min BUN/Creatinine Ratio 5.6 L (14-18) Glucose 108 H (74-106) mg/dL Calcium 8.7 (8.5-10.1) mg/dL Phosphorus 2.6 (2.6-4.7) mg/dL Magnesium 1.7 L (1.8-2.4) mg/dl Shay Results Last 24 Hours: Microbiology 05/08/18 21:15 Aerobic Blood Culture - Preliminary Blood - Venous - Lab Draw NO GROWTH AFTER 3 DAYS Anaerobic Blood Culture - Preliminary NO GROWTH AFTER 3 DAYS 05/08/18 21:05 Aerobic Blood Culture - Preliminary Blood - Venous NO GROWTH AFTER 3 DAYS Anaerobic Blood Culture - Preliminary NO GROWTH AFTER 3 DAYS Med Orders - Current: Current Medications Acetaminophen (Tylenol) 975 mg PO Q6H PRN PRN Reason: Fever Last Admin: 05/11/18 16:15 Dose: 975 mg Clotrimazole (Lotrimin Af 1% Crm) 0 gm TOP BID [facility] Last Admin: 05/12/18 08:41 Dose: 1 applic Diphenhydramine HCl (Benadryl) 25 mg PO BEDTIME PRN PRN Reason: Insomnia Last Admin: 05/11/18 22:04 Dose: 25 mg Heparin Sodium (Porcine) (Heparin Sodium) 5,000 units SUBCUT Q8H [facility] Last Admin: 05/12/18 05:14 Dose: 5,000 units Hydromorphone HCl (Dilaudid) 0.2 - 0.6 mg IVPUSH Q2H PRN PRN Reason: Pain Last Admin: 05/10/18 05:43 Dose: 0.6 mg Metronidazole 500 mg/ Premix 100 mls @ 100 mls/hr IV Q8H [facility] Last Admin: 05/12/18 08:41 Dose: 100 mls/hr Levofloxacin/Dextrose 750 mg/ (Premix) 150 mls @ 100 mls/hr IV Q24H [facility] Last Admin: 05/11/18 22:03 Dose: 100 mls/hr Potassium Chloride/Dextrose/Sod Cl (D5 1/2 Ns W/ 20 Meq/L Kcl) 1,000 mls @ 125 mls/hr IV ASDIRECTED [facility] Last Admin: 05/12/18 10:04 Dose: 125 mls/hr Metoclopramide HCl (Reglan) 10 mg IVPUSH Q6H PRN PRN Reason: Nausea Last Admin: 05/11/18 23:58 Dose: 10 mg Discontinued Medications Acetaminophen (Tylenol) 975 mg PO NOW ONE Stop: 05/08/18 23:48 Last Admin: 05/08/18 23:50 Dose: 975 mg Acetaminophen (Tylenol) Confirm Administered Dose 975 mg .ROUTE .STK-MED ONE Stop: 05/08/18 23:50 Last Admin: 05/08/18 23:54 Dose: Not Given Hydromorphone HCl (Dilaudid) 1 mg IVPUSH ONETIME ONE Stop: 05/08/18 20:49 Last Admin: 05/08/18 21:05 Dose: 1 mg Hydromorphone HCl (Dilaudid) 1 mg IVPUSH ONETIME ONE Stop: 05/08/18 23:49 Last Admin: 05/08/18 23:54 Dose: 1 mg Hydromorphone HCl (Dilaudid) 1 mg IVPUSH Q2H PRN PRN Reason: Pain Last Admin: 05/09/18 13:12 Dose: 1 mg Dextrose/Sodium Chloride (Dextrose 5%-Normal Saline) 1,000 mls @ 999 mls/hr IV ASDIRECTED [facility] Last Admin: 05/08/18 21:06 Dose: 999 mls/hr Levofloxacin/Dextrose 750 mg/ (Premix) 150 mls @ 100 mls/hr IV ONETIME ONE Stop: 05/08/18 23:21 Last Admin: 05/08/18 22:02 Dose: 100 mls/hr Metronidazole 500 mg/ Premix 100 mls @ 100 mls/hr IV ONETIME ONE Stop: 05/09/18 00:17 Last Admin: 05/08/18 23:47 Dose: 100 mls/hr Dextrose/Lactated Ringer's (Dextrose 5%-Lactated Ringers) 1,000 mls @ 125 mls/ hr IV Q16H [facility] Last Admin: 05/09/18 23:49 Dose: Not Given Potassium Chloride/Dextrose/Sod Cl (D5 1/2 Ns W/ 20 Meq/L Kcl) 1,000 mls @ 125 mls/hr IV Q16H [facility] Last Admin: 05/09/18 11:39 Dose: 125 mls/hr Sodium Chloride (Normal Saline) 1,000 mls @ 500 mls/hr IV ONETIME ONE Stop: 05/09/18 15:15 Last Admin: 05/09/18 13:54 Dose: 500 mls/hr Iopamidol (Isovue-300 (61%)) 100 ml IVPUSH ONETIME ONE Stop: 05/08/18 22:51 Last Admin: 05/08/18 23:04 Dose: 100 ml Metoclopramide HCl (Reglan) 10 mg IVPUSH ONETIME ONE Stop: 05/08/18 20:49 Last Admin: 05/08/18 21:05 Dose: 10 mg - Exam General: Alert, Oriented, Cooperative GI/Abdominal Exam: Soft, Non-Tender, No Distention - Problem List & Annotations (1) Sigmoid diverticulitis SNOMED Code(s): 855103994 Code(s): K57.32 - DVTRCLI OF LG INT W/O PERFORATION OR ABSCESS W/O BLEEDING Status: Acute Current Visit: Yes - Problem List Review Problem List Initiated/Reviewed/Updated: Yes - My Orders Last 24 Hours: My Active Orders 05/11/18 13:15 Clotrimazole [Lotrimin AF 1% Crm] 0 gm TOP BID 05/11/18 21:00 diphenhydrAMINE [Benadryl] 25 mg PO BEDTIME PRN 05/12/18 Breakfast Full Liquid Diet [DIET] 05/14/18 07:00 CBC W/O DIFF,HEMOGRAM [HEME] MOTH@0700 05/17/18 07:00 CBC W/O DIFF,HEMOGRAM [HEME] MOTH@0700 05/21/18 07:00 CBC W/O DIFF,HEMOGRAM [HEME] MOTH@0700 05/24/18 07:00 CBC W/O DIFF,HEMOGRAM [HEME] MOTH@0700 05/28/18 07:00 CBC W/O DIFF,HEMOGRAM [HEME] MOTH@0700 - Plan Plan:: 43 yo male, -[place], active smoker, with first episode of acute sigmoid diverticulitis, [place] I, with tiny pocket of extraluminal air on admission CT, admitted for bowel rest and IV antibiotics, HD#4. Continues to clinically improve with medical therapy. WBC has decreased from 14k to 7k to 4k. - Advance to regular diet. - After tolerating regular diet, will plan for D/C home, and transition to oral antibiotics. - DVT prophylaxis: heparin 5000 units SQ q8h, SCD's. Patient will need colonoscopy once this episode of acute sigmoid diverticulitis is resolved (in 2-3 months). Instructed patient to F/U to obtain this study. Camilo Carranza M.D (Siri)., F.A.C.S. General Surgery Pager: [phone]
--- NOTE | 2018-05-12 12:11 | PCM.DCSUM1 ---
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 CT scan demonstrated a small area of extraluminal air. The patient was admitted and placed on IV antibiotics (Levaquin and Flagyl) and bowel rest. The patient slowly improved, and diet was slowly advanced. By HD#4, the patient met discharge criteria. He will continue on outpatient antibiotics for an additional 10 days. He was instructed to follow-up in 2 months to discuss outpatient colonoscopy. Also gave smoking cessation counseling during hospitalization. Patient is motivated and desires to quit. Diagnosis: Stroke: No Modified [place] Scale: No Symptoms at All Modified [place] Scale Score: 0 - Discharge Data Discharge Date: 05/12/18 Discharge Disposition: Home, Self-Care 01 Condition: Good - Discharge Diagnosis/Problem(s) (1) Sigmoid diverticulitis SNOMED Code(s): 266925332 ICD Code: K57.32 - DVTRCLI OF LG INT W/O PERFORATION OR ABSCESS W/O BLEEDING Status: Acute Current Visit: Yes - Patient Summary/Data Labs Pending at D/C: Blood culture has been negative for 3 days. - Patient Instructions Diet: Regular Diet as Tolerated Activity: Rest and Relax Today Showering/Bathing: May Shower Notify Provider of: Fever, Increased Pain, Nausea and/or Vomiting - Discharge Plan *PRESCRIPTION DRUG MONITORING PROGRAM REVIEWED*: Not Applicable *COPY OF PRESCRIPTION DRUG MONITORING REPORT IN PATIENT MARIANGEL: Not Applicable Prescriptions/Med Rec: Levofloxacin 500 mg PO DAILY 10 Days #10 tablet metroNIDAZOLE [Flagyl] 500 mg PO Q8H #30 tab Home Medications: Home Meds Levofloxacin 500 mg PO DAILY 10 Days #10 tablet 05/12/18 [Rx] metroNIDAZOLE [Flagyl] 500 mg PO Q8H #30 tab 05/12/18 [Rx] Patient Handouts: Diverticulitis, Potg-or-Mxec, Steps to Quit Smoking Forms: ED Department Discharge Referrals: PCP,None [Primary Care Provider] - (locate a primary health care provider and schedule a post hospital follow up appointment within 7-10 days.) Camilo Carranza MD [Physician] - (Follow-up in General Surgery clinic in 2 months to discuss colonoscopy.) - Discharge Summary/Plan Comment DC Time >30 min.: Yes - Patient Data Vitals - Most Recent: Last Vital Signs Temp 36.7 C 05/12/18 08:37 Pulse 69 05/12/18 08:37 Resp 18 05/12/18 08:37 BP 136/93 H 05/12/18 08:37 Pulse Ox 99 05/12/18 08:37 Weight - Most Recent: 81.647 kg I&O - Last 24 hours: Intake & Output 05/11/18 05/12/18 05/12/18 22:59 06:59 14:59 Intake Total 2554 2100 Balance 2554 2100 Lab Results - Last 24 hrs: Laboratory Results - last 24 hr 05/12/18 05/12/18 Range/Units 05:45 05:45 WBC 4.86 (4.23-9.07) K/mm3 RBC 4.14 L (4.63-6.08) M/mm3 Hgb 13.1 L (13.7-17.5) gm/L Hct 38.1 L (40.1-51.0) % MCV 92.0 (79.0-92.2) fl MCH 31.6 (25.7-32.2) pg MCHC 34.4 (32.2-35.5) g/dl RDW Std Deviation 41.3 (35.1-43.9) fL Plt Count 229 (163-337) K/mm3 MPV 9.6 (9.4-12.3) fl Neut % (Auto) 65.1 (34.0-67.9) % Lymph % (Auto) 18.3 L (21.8-53.1) % [place] % (Auto) 15.4 H (5.3-12.2) % Eos % (Auto) 0.8 (0.8-7.0) Baso % (Auto) 0.2 (0.1-1.2) % Neut # (Auto) 3.16 (1.78-5.38) K/mm3 Lymph # (Auto) 0.89 L (1.32-3.57) K/mm3 [place] # (Auto) 0.75 (0.30-0.82) K/mm3 Eos # (Auto) 0.04 (0.04-0.54) K/mm3 Baso # (Auto) 0.01 (0.01-0.08) K/mm3 Manual Slide Review Abnormal smear Sodium 136 (136-145) mEq/L Potassium 3.8 (3.5-5.1) mEq/L Chloride 102 (98-107) mEq/L Carbon Dioxide 24 (21-32) mEq/L Anion Gap 13.8 (5-15) BUN 5 L (7-18) mg/dL Creatinine 0.9 (0.7-1.3) mg/dL Est Cr Clr Drug Dosing 100.99 mL/min Estimated GFR (MDRD) > 60 (>60) mL/min BUN/Creatinine Ratio 5.6 L (14-18) Glucose 108 H (74-106) mg/dL Calcium 8.7 (8.5-10.1) mg/dL Phosphorus 2.6 (2.6-4.7) mg/dL Magnesium 1.7 L (1.8-2.4) mg/dl FRANCESCA Results - Last 24 hrs: Microbiology 05/08/18 21:15 Aerobic Blood Culture - Preliminary Blood - Venous - Lab Draw NO GROWTH AFTER 3 DAYS Anaerobic Blood Culture - Preliminary NO GROWTH AFTER 3 DAYS 05/08/18 21:05 Aerobic Blood Culture - Preliminary Blood - Venous NO GROWTH AFTER 3 DAYS Anaerobic Blood Culture - Preliminary NO GROWTH AFTER 3 DAYS Med Orders - Current: Current Medications Acetaminophen (Tylenol) 975 mg PO Q6H PRN PRN Reason: Fever Last Admin: 05/11/18 16:15 Dose: 975 mg Clotrimazole (Lotrimin Af 1% Crm) 0 gm TOP BID [facility] Last Admin: 05/12/18 08:41 Dose: 1 applic Diphenhydramine HCl (Benadryl) 25 mg PO BEDTIME PRN PRN Reason: Insomnia Last Admin: 05/11/18 22:04 Dose: 25 mg Heparin Sodium (Porcine) (Heparin Sodium) 5,000 units SUBCUT Q8H [facility] Last Admin: 05/12/18 05:14 Dose: 5,000 units Hydromorphone HCl (Dilaudid) 0.2 - 0.6 mg IVPUSH Q2H PRN PRN Reason: Pain Last Admin: 05/10/18 05:43 Dose: 0.6 mg Metronidazole 500 mg/ Premix 100 mls @ 100 mls/hr IV Q8H [facility] Last Admin: 05/12/18 08:41 Dose: 100 mls/hr Levofloxacin/Dextrose 750 mg/ (Premix) 150 mls @ 100 mls/hr IV Q24H [facility] Last Admin: 05/11/18 22:03 Dose: 100 mls/hr Metoclopramide HCl (Reglan) 10 mg IVPUSH Q6H PRN PRN Reason: Nausea Last Admin: 05/11/18 23:58 Dose: 10 mg Discontinued Medications Acetaminophen (Tylenol) 975 mg PO NOW ONE Stop: 05/08/18 23:48 Last Admin: 05/08/18 23:50 Dose: 975 mg Acetaminophen (Tylenol) Confirm Administered Dose 975 mg .ROUTE .STK-MED ONE Stop: 05/08/18 23:50 Last Admin: 05/08/18 23:54 Dose: Not Given Hydromorphone HCl (Dilaudid) 1 mg IVPUSH ONETIME ONE Stop: 05/08/18 20:49 Last Admin: 05/08/18 21:05 Dose: 1 mg Hydromorphone HCl (Dilaudid) 1 mg IVPUSH ONETIME ONE Stop: 05/08/18 23:49 Last Admin: 05/08/18 23:54 Dose: 1 mg Hydromorphone HCl (Dilaudid) 1 mg IVPUSH Q2H PRN PRN Reason: Pain Last Admin: 05/09/18 13:12 Dose: 1 mg Dextrose/Sodium Chloride (Dextrose 5%-Normal Saline) 1,000 mls @ 999 mls/hr IV ASDIRECTED [facility] Last Admin: 05/08/18 21:06 Dose: 999 mls/hr Levofloxacin/Dextrose 750 mg/ (Premix) 150 mls @ 100 mls/hr IV ONETIME ONE Stop: 05/08/18 23:21 Last Admin: 05/08/18 22:02 Dose: 100 mls/hr Metronidazole 500 mg/ Premix 100 mls @ 100 mls/hr IV ONETIME ONE Stop: 05/09/18 00:17 Last Admin: 05/08/18 23:47 Dose: 100 mls/hr Dextrose/Lactated Ringer's (Dextrose 5%-Lactated Ringers) 1,000 mls @ 125 mls/ hr IV Q16H [facility] Last Admin: 05/09/18 23:49 Dose: Not Given Potassium Chloride/Dextrose/Sod Cl (D5 1/2 Ns W/ 20 Meq/L Kcl) 1,000 mls @ 125 mls/hr IV Q16H [facility] Last Admin: 05/09/18 11:39 Dose: 125 mls/hr Sodium Chloride (Normal Saline) 1,000 mls @ 500 mls/hr IV ONETIME ONE Stop: 05/09/18 15:15 Last Admin: 05/09/18 13:54 Dose: 500 mls/hr Potassium Chloride/Dextrose/Sod Cl (D5 1/2 Ns W/ 20 Meq/L Kcl) 1,000 mls @ 125 mls/hr IV ASDIRECTED [facility] Last Admin: 05/12/18 10:04 Dose: 125 mls/hr Iopamidol (Isovue-300 (61%)) 100 ml IVPUSH ONETIME ONE Stop: 05/08/18 22:51 Last Admin: 05/08/18 23:04 Dose: 100 ml Metoclopramide HCl (Reglan) 10 mg IVPUSH ONETIME ONE Stop: 05/08/18 20:49 Last Admin: 05/08/18 21:05 Dose: 10 mg
[2018-05-12 14:13] VITALS: BP 145/97
== END 2018-05-12 15:06 | disposition home or self-care (01) | DRG 392 ==
LOC: JD.ED 20:18 → JD.MS 23:45
PROVIDERS: ADMIT Student in an Organized Health Care Education/Training Program; ATTEND Student in an Organized Health Care Education/Training Program
DX: K57.32 Diverticulitis of large intestine without perforation or abscess without bleeding (principal); K56.0 Paralytic ileus; Z91.018 Allergy to other foods
CPT/HCPCS: 36415; 71045; 71045-26; 74018; 74018-26; 74177; 74177-26; 80048; 80053; 81001; 83690; 83735; 84100; 85007; 85025; 85027; 85610; 85652; 85730; 86140; 87040; 93005; 93010; 96361; 96365; 96366; 96367; 96375; 96376; 99285; 99285-25; A9270-GY; J1170; J1644; J1956; J2765; J3480; J3490; J7040; J7042; Q9967